=== PATIENT | male | born 1995 | race Caucasian/White ===

== ENCOUNTER 2022-09-21 00:29 | Day surgery (SDC) | payer BC, SELFPAY ==
[2022-09-08 14:31] VITALS: BMI 37.9
--- NOTE | 2022-09-08 14:57 | PC.NURSE ---
Report to the Outpatient Waiting Room, entrance under the green pavilion located off [facility], at time 1000 on date 09/21/22. Planned Procedure Time: 1200. Time changes happen often and if your time is changed the preop area will call you the afternoon before. - You and your visitor will be asked to self-screen and do not enter if you have any COVID symptoms. - Only one visitor is requested with a max of two and NO children visitors are allowed at this time. - The patient visitor may be requested to leave or wait in car when not with patient due to distancing restrictions. - A mask is optional within the hospital. Patients may have clear liquids (water, carbonated beverages, clear teas, apple juice) until 3 hours prior to surgery with a maximum of 20 ounces. - No food from midnight until time of surgery - Infants may have breast milk until 4 hours before surgery, infant formula 6 hours prior to surgery. - Children will be allowed to drink immediately following surgery. If applicable, please bring a bottle or sippy cup to assist with drinking. Juice, water, soda, and popsicles are readily available. For infants on formula, please bring formula the day of surgery. Pacifiers are allowed. Take the following medications with a SIP of water the morning of surgery: _n/a_ Medications to discontinue per physician _n/a Date to take last dose Please no make-up, nail kiswahili, hairspray, perfume, deodorant, or body powder the day of surgery. No jewelry (including any body piercings) or valuables the day of surgery, leave them at home. Please take a shower or bath the night before, or the morning of, surgery with an antibacterial soap. Wear comfortable, loose fitting clothing. Children are encouraged to wear pajamas. - Jewelry must be removed prior to entering the operating room. Rings and piercings that are not removed may be cut off. - The hospital will not accept responsibility for valuables. - Please leave all valuables, including medications, at home the day of surgery. If you are going home after surgery, a licensed airport driver must drive you home. - NO public transportation without another adult if you receive anesthesia. - We recommend that an adult stay with you for 24 hours following discharge. - We also recommend that you do not drive, make important decision, drink alcoholic beverages, or take any drugs that were not prescribed by your health care provider for at least 24 hours after your discharge time. For Pediatric surgeries, we recommend two adults accompany the child home. Follow any additional instructions given to you from your surgeon. If you or anyone in your household have experienced Covid symptoms in the past week, please notify your surgeon or the nurse liaison at the phone number below for possible testing. Telephone instructions given to Julian Dorman_and asked if any additional questions and then verbalized understanding. Patient advised to call surgeon office or pre surgery nurse liaison [phone] if any additional questions.
--- NOTE | 2022-09-20 19:27 | PM.SD2 ---
Same Day Admit/Disch: HPI History of Present Illness Chief complaint: Sterilization, Lt Ing Hernia Narrative: Julian Dorman is a 27 year old male who saw his primary care physician about a vasectomy. On exam, he was noted to have a left inguinal hernia. Patient saw me in the office last summer. He was noted to have a reducible left inguinal hernia. He is taken to surgery now for left inguinal hernia repair which has been coordinated with vasectomy per Dr. Fajardo. He has gotten some occasional discomfort in his left testicle but has never noticed a left inguinal bulge or felt pain in the left groin. 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 Gender identity (if verbalized by the patient): Male Sexual Orientation (if Verbalized by the Patient): Straight or Heterosexual Spiritual care concerns: No Same Day Admit/Disch: Med Pre-admit Medications Home Medications Medication Instructions Recorded Confirmed Type hydrocodone 5 mg-acetaminophen 325 1 - 2 tablet PO Q6H PRN pain #25 09/21/22 Rx mg tablet tabs ketorolac 10 mg tablet 10 mg PO Q6H 4 days #16 tabs 09/21/22 Rx Exam Const: General: comfortable, no acute distress, alert, awake and obese Nutritional Appearance: obese HENMT: Head: normocephalic and atraumatic Mouth: Yes Normal oral and palatal mucosa present Eyes: Conjunctivae: conjunctivae normal Pupils: Equal, round and reactive pupils present EOM: EOMs intact bilaterally Neck: Neck: normal visual inspection, no lymphadenopathy and nontender Resp: Effort & Inspection: normal respiratory effort Auscultation: clear to auscultation bilaterally Cardio: Rate: regular rate Rhythm: regular rhythm Heart sounds: no gallops, no murmurs and no rubs GI: Inspection: non-distended GI Palp: Yes Soft to palpation, No Tenderness to palpation present (GI), No Hepatomegaly present and No Splenomegaly present : Male General Exam: Yes hernia (Reducible left inguinal hernia, only noted with cough.) Penis: Yes normal penis Scrotum: scrotum normal Testes: Testes normal Skin: Lesions: no lesions Rashes: no rashes Neuro: General: no focal motor deficits and CN's II-XI intact bilaterally Cranial nerves: Yes Equal, round and reactive pupils present, Yes Bilaterally intact EOM present, Yes facial symmetry and Yes Midline tongue present Speech: normal speech Motor exam (neuro): 5/5 motor strength present throughout and Motor abnormalities not present Extrem: General: no clubbing, cyanosis or edema and edema Psych: Affect: normal affect Thought process: Normal thought process present Insight: Good insight present (Psych) DS: Summary Time Spent with Patient Time attestation: Total time spent providing and/or coordinating discharge services: DS: Admitting Diagnosis Discharge Date 09/21/2022 Admitting Diagnosis Left inguinal hernia-plan to proceed with repair as an outpatient using mesh. The procedure the risks the benefits have been discussed. All questions were answered. He understands and agrees to go ahead. Desires elective sterilization-vasectomy to be performed at the same outpatient setting. Morbid obesity DS: Discharge Diagnosis Discharge Diagnosis (1) Inguinal hernia without obstruction or gangrene: Code(s): K40.90 - Unilateral inguinal hernia, without obstruction or gangrene, not specified as recurrent Status: Acute Assessment and Plan: Repair indirect left ingu
[2022-09-21] VITALS (7 sets, daily range): BP systolic 130–157; BP diastolic 62–96; PULSE 82–112; RESP 14–23; TEMP 36.2–36.9; O2SAT 96–100
--- NOTE | 2022-09-21 06:45 | P.PNAN_ITS ---
Anes - Initial Pre Proc Eval Procedure: Operation Date: 09/21/22 07:30 Proposed Procedures p Bilateral Vasectomy - Say Fajardo MD s Left Inguinal Hernia Repair - Po Velez MD Date/Time: 09/21/22 06:45 Surgeon: Say Fajardo MD Pre Op Diagnosis: Sterilization, Lt Ing Hernia Patient Data Age: 27 Gender: M Height: 1.78 m Weight: 121.7 kg Allergies Allergy/AdvReac Type Severity Reaction Status Date / Time No Known Allergies Allergy Verified 03/16/22 10:01 Home Medications Medication Instructions Recorded Confirmed Type No Home Medications 03/16/22 09/08/22 History Patient hx anesthesia problems: none Family hx anesthesia problems: none Results Review: All pre-operative results and documents have been reviewed as part of the pre- operative evaluation. PMFSH Family History Family History Other Cancer Diabetes mellitus Social History Social History Smoking packs per day: 1 Smoking cigarettes per day: 20.0 Years smoked: 5 Smoking pack-years: 5.00 Smoking status: Former smoker Tobacco type: cigarettes Alcohol intake: current Alcohol use details: Rarely Substance use: never Living arrangements: with family Additional occupation/education comments: machine farmworker Gender identity (if verbalized by the patient): Male Sexual Orientation (if Verbalized by the Patient): Straight or Heterosexual Spiritual care concerns: No Anes - Eval Final PreProcedure Day of Procedure 09/21/22 06:45 Patient weight: obese Heart: regular rate and rhythm Lungs: clear to auscultation Airway: Mallampati scale class II Neurological: alert and oriented Last oral intake: >/= 8 hours ASA classification: III Emergent: no Anesthetic plan: proceed Anesthesia type and monitoring: general LMA and standard monitoring Results Review: All pre-operative results and documents have been reviewed as part of the pre- operative evaluation. Informed Consent: The patient's anesthetic plan and its attendant risks and benefits were discussed with the patient/family/POA. Questions were solicited and answers provided to the satisfaction of the patient/family/POA.
[2022-09-21] MEDS: ACETAMINOPHEN 500 MG TABLET 1000 MG PO (06:58)
[2022-09-21] MEDS: LACTATED RINGERS 1,000 ML 30 ML IV CONT ×2 (07:10→10:09)
[2022-09-21] MEDS: KETOROLAC 15 MG/ML VIAL (*BKC) IV PUSH (07:11)
--- NOTE | 2022-09-21 07:11 | WPDHPUPDATE1 ---
History and Physical Update Update Date/Time: 09/21/22 07:11 History and Physical has been reviewed, including an updated exam of the patient. There are NO changes in the patient's condition. Risks, benefits, and alternatives have been discussed and questions answered. Patient agrees to proceed with procedure.
--- NOTE | 2022-09-21 07:22 | WPDHPUPDATE1 ---
History and Physical Update Update Date/Time: 09/21/22 07:23 History and Physical has been reviewed, including an updated exam of the patient. There are NO changes in the patient's condition. Risks, benefits, and alternatives have been discussed and questions answered. Patient agrees to proceed with procedure. Proceed with bilateral vasectomy
[2022-09-21] MEDS: ceFAZolin 3 GM/D5W 100 ML 100 ML IVPB (07:29)
--- NOTE | 2022-09-21 09:04 | W.PM.PROC2 ---
Procedure Note - Detailed Date of Procedure 09/21/22 Pre-op Diagnosis Left inguinal hernia Post-op Diagnosis Same Procedure Performed Left inguinal hernia repair with large PerFix Light plug and patch Surgeon Po Velez MD Enamel Finisher Marina Andujar [facility] Anesthesia General (LMA) and Local (0.5% Marcaine with epinephrine) Indications Patient has a bulge in the left groin noted on physical exam when he saw his primary care physician to discuss vasectomy. Patient has minimal symptoms but occasionally has discomfort from this. He is taken to surgery now for left inguinal hernia repair by Dr. Velez. Following the repair, he is having elective vasectomy per Dr. Fajardo which will be reported in a separate dictation. Findings Large indirect hernia. Description of Procedure Patient was taken to surgery and placed in a supine position. Anesthesia was introduced. The left groin and genitalia were prepped and draped. The proposed incision was marked on the skin. Local was infiltrated into the skin and the deeper subcutaneous tissues. Incision was made and dissection was carried down through the subcutaneous down to the external oblique aponeurosis. There was probably at least 6 in of subcutaneous before the aponeurosis was encountered. Cautery was used for hemostasis. Local was infiltrated deep to the aponeurosis in the area of the spermatic cord and inguinal canal. The external oblique aponeurosis was then opened laterally and extended medially through the external ring. Care was taken to avoid injury to the ilioinguinal nerve. The nerve was dissected free and carefully preserved throughout the surgery. We dissected the leaves of the aponeurosis free from the cord. The cord was then mobilized medially. Dissection in the anteromedial aspect of the cord revealed the fat filled hernia which was quite prominent. This was dissected carefully free from the spermatic cord structures the vas deferens and the ileoinguinal nerve. We continued the dissection back to the internal ring. A high dissection was performed. The sac was then reduced. I placed a Ray-Dorothy in the internal ring to facilitate keeping the hernia reduced. I then excised some redundant cremasteric fibers from around the area of the internal ring. The ilioinguinal nerve was again carefully preserved as were the cord structures. I then removed the Ray-Dorothy sponge. A large PerFix Light plug was placed in the defect. The plug was sutured securely to the transversalis fascia with interrupted 3-0 Vicryl suture. I then checked the direct space and found no evidence of a hernia. Cautery was used to achieve good hemostasis. A patch was cut to the appropriate size and placed over the inguinal canal floor. The lateral leaves were passed beyond the cord. The 1st pieces Xaracoll was then laid over the patch. I then closed the external oblique aponeurosis over the cord and ilioinguinal nerve with interrupted 3-0 Vicryl suture. A 2nd piece of Xaracoll was placed over the external oblique aponeurosis. Alesia's fascia was then closed with interrupted 3-0 Vicryl suture. The last pieces Xaracoll was placed in the subcutaneous. The skin was loosely approximated with subcuticular interrupted 4-0 Vicryl skin suture. The wound was closed with a running 4-0 Monocryl skin suture. The wound was dressed with Exofin surgical adhesive. Dr. Fajardo was then called to the operating room and proceeded with the vasectomy. Sponge needle counts were correct x2. Implants Large PerFix Light plug and patch, Xaracoll Estimated Blood Loss -5 Drains No Packing No Pathology None sent Complications No immediate complications Condition Stable Disposition No change [facility] Billing Surgery - Charge Forward: Surgery Billing (Repair left inguinal hernia with mesh)
--- NOTE | 2022-09-21 09:13 | W.PM.PROC2 ---
Procedure Note - Detailed Date of Procedure 09/21/22 Pre-op Diagnosis Sterilization, Lt Ing Hernia Post-op Diagnosis Same Procedure Performed A bilateral vasectomy Surgeon Say Fajardo MD Anesthesia General Description of Procedure Patient is already in the operative suite and underwent a left inguinal hernia repair by Dr. Velez. He was then prepped and draped usual sterile fashion. Time-out was performed. A midline incision was made in the hemiscrotum. The right vas was isolated. A segment was excised the ends were fulgurated ligated and buried. Anesthetized the cord with 2% lidocaine. Similar procedure was done left side. Specimens were sent for review. 2% lidocaine was then used to anesthetize the skin. 3-0 chromic was used to close the skin interrupted fashion. Patient is taken recovery stable condition. He will submit his semen analysis in approximately 3 months time. Estimated Blood Loss 0 Drains No Packing No Pathology Yes Complications No immediate complications Condition Stable Disposition PACU
--- NOTE | 2022-09-21 11:11 | SUR.PHASEII ---
[id number] palacios regarding pain medicine sent, will resend a script to a new pharmacy
== END 2022-09-21 11:25 | disposition home or self-care (01) ==
PROVIDERS: Surgery; PCP Family Medicine; Visit Provider Urology
PROC: (CPT 55250; principal; 2022-09-21 07:30)
PROC: (CPT 49505; 2022-09-21 07:30)
DX: Z30.2 Encounter for sterilization (principal); Z87.891 Personal history of nicotine dependence; E66.9 Obesity, unspecified; Z68.38 Body mass index [BMI] 38.0-38.9, adult
CPT/HCPCS: 55250; 49505; 88300; A9270; C1781; J0690; J1100; J1885; J2250; J2405; J2704; J3010; J7120